=== PATIENT | female | born 1960 | race Caucasian/White ===

== ENCOUNTER 2022-05-14 23:09 | Emergency (ER) | payer BC, SELFPAY ==
[2022-05-14 23:11] VITALS: BP 147/115; PULSE 83; RESP 20; TEMP 36.4; O2SAT 100; BMI 21.9
--- NOTE | 2022-05-14 23:41 | EX.ED.DYSGE1 ---
HPI History of Present Illness Chief Complaint: Anxiety Detail of Chief Complaint: Documented in the HPI narrative Informant: patient, spouse/S.O. and family Onset/Context/Timing Onset: Hours Context: Sudden Onset Timing: Intermittent Quality: HPI narrative Location: 's high school reunion Current Severity: Mild Maximum Severity: Moderate Worsened by: Uncertain Relieved by: Not applicable Associated Symptoms Associated Symptoms: Paresthesia upper and lower extremity, shortness of breath, chest discomfor Narrative Narrative: Patient is a 61-year-old woman with history of prior stroke. She is on an aspirin and hypercholesterolemia drug. She has had extensive work-up with no etiology of her strokes. She does admit to drinking 2.5 beers this evening. She states she does have drinks with her on weekends. She did not drink any more than normal. She denies headache. She states she could not see. states it was dark. It was not a field cut. She denies ringing in ears decreased hearing. She denied perioral numbness. She denies trouble with speech or swallowing. She denied cardiac respiratory symptoms other than the shortness of breath and chest pain after breathing deeply and fast. She denies GI symptoms. She reported difficulty/inability to ambulate; however, her states she was ambulating. Her gait was not broad-based. She is not walking to one side or the other. Prior similar symptoms: No Recent Illness/Hospitalization: No [facility] Medical History Stroke/cerebrovascular accident TIA (transient ischemic attack) Allergy/AdvReac Type Severity Reaction Status Date / Time codeine Allergy Rash Verified 05/14/22 23:21 metronidazole [From Flagyl] Allergy Swelling Verified 05/14/22 23:21 acetaminophen AdvReac Nausea/Vom/ Verified 05/14/22 23:21 [From Darvocet-N] Diarrhea oxycodone [From Percocet] AdvReac Nausea/Vom/ Verified 05/14/22 23:21 Diarrhea propoxyphene AdvReac Nausea/Vom/ Verified 05/14/22 23:21 [From Darvocet-N] Diarrhea Social History (Updated 05/14/22 @ 23:[address] Ethan Conrad MD) household members: spouse Smoking Status: Never smoker alcohol intake: current alcohol intake frequency: a few times a month substance use type: does not use ROS ROS ED Constitutional Constitutional ED: Denies chills, fever(s), subjective, sweats or weight loss Eyes Eyes: Denies blurry vision, change in vision or diplopia ENT ENT ED: Denies ear pain, rhinorrhea or sore throat Cardiovascular Cardiovascular: Reports chest pain and palpitations; Denies orthopnea, paroxysmal nocturnal dyspnea or racing heartbeat Respiratory/Chest Respiratory/Chest: Reports dyspnea; Denies cough, dyspnea on exertion, orthopnea or paroxysmal nocturnal dyspnea Gastrointestinal Gastrointestinal: Denies abdominal pain, constipation, diarrhea, melena, nausea or vomiting Musculoskeletal Musculoskeletal: Denies arthralgias, back pain or myalgias Integumentary Denies rash Neurologic Neurologic: Reports paresthesias; Denies headache(s) or weakness Psychiatric Psychiatric: Reports anxiety; Denies depression Endocrine Endocrinology: Denies cold intolerance or heat intolerance Hematologic/Lymphatic Hematologic/Lymphatic: Reports systems reviewed and no addt'l complaints, except as documented EXAM Physical Exam Const Vital Signs: 05/14/22 23:11 05/14/22 23:47 Temperature 97.6 F L Temperature Source Temporal Pulse Rate 83 88 Respiratory Rate 20 H 17 Blood Pressure 147/115 H Blood Pressure Mean 125 Pulse Ox 100 100 Oxygen Delivery Method Room Air Room Air Positive well nourished and well developed; Negative for obese General Appearance ED: well developed and NAD; Negative for cyanotic, diaphoretic or pallor Nutritional Appearance: Negative for obese HEENT Reports moist mucous membranes HEENT Narrative: Ears normal. Nares patent. No deviation of protrusion. Posterior pharynx out erythema or exudate. Eyes PERRL and EOMs intact bilaterally Eyes Narrative: Patient has nystagmus with lateral gaze. There is no nystagmus with central gaze. There is no APD. General Eye ED: Negative for pale conjunctiva or scleral icterus Neck no lymphadenopathy, supple and no JVD Resp normal respiratory effort and clear to auscultation bilaterally Cardio regular rate, regular rhythm, S1 normal heart sound, S2 normal heart sound and no murmurs GI normal to inspection, nondistended, normoactive bowel sounds, non-tender, non-distended and no masses; Negative for hepatosplenomegaly Back/Spine no CVA tenderness Extremity normal to inspection Extremity Narrative: There is no asymmetry, swelling, discoloration, leg vein distention, palpable cords or tenderness along the distribution of the deep venous system. Neuro oriented x3, No CN's II-XII intact bilaterally and no sensory deficits noted Neuro Narrative: Patient has no dysmetria. There is no clonus Babinski sign. He does have a facial droop on the left due to prior stroke. Patient does have bilateral's Chvostek sign. Sensorium / Orientation: alert Motor Exam: strength 5/5 throughout Psych Psych Narrative: Patient is excitable. Her speech is slightly pressured. As I obtain more information her speech became slower. Skin no rashes or lesions noted, no wounds and skin turgor normal General Skin Exam: Negative for jaundice or pallor MDM MDM MDM Narrative Medical decision making narrative: Patient's history is not consistent with a stroke. Patient did hyperventilate uncertain why. Suspect many of her symptoms were due to hyperventilation. Suspect she may have had more to drink than she admits to. Plan is to reassess in 30 minutes. Patient began to hyperventilate. She was having carpopedal spasms. Plan is to place a Hep-Lock in. Administered 0.5 mg of Ativan and obtain an alcohol level. Patient was reassessed at 0025. She is much Calmer. Her speech is no longer pressured. She is alert she is oriented. Her mentation is slow most likely due to the 0.5 mg of Ativan. She no longer has carpopedal spasms. Cranials 2 through 12 reveal deficit on the left side due to prior stroke. Motor strength is 5/5 upper and lower extremity. Sensation is altered left side of face due to prior stroke otherwise there is no altered sensation. There is no dysmetria. Reflexes are 2+ at the bicep, tricep, brachioradialis, patella and ankle. There is no clonus or Babinski sign noted. There is no inattention. There is no problems with fluency of speech or slurred words. Negative's Chvostek sign. Lab Data Labs: Laboratory Results - last 24 hr 05/15/22 00:03 Ethyl Alcohol 123.0 Rhythm Strip Rhythm Strip: Sinus Rhythm (Rate is 83. When patient was anxious heart rate was 99.) Ectopy: None Discharge Plan Triage Chief Complaint: Anxiety ED Provider: Ethan Conrad Dx/Rx/DC Orders Clinical Impression: Panic attack, History of stroke, Acute hyperventilation syndrome Instructions: ED Hyperventilation Syndrome, ED Panic Attack Primary Care Provider: Rohini Doctor,Out of Referrals: Rohini Doctor,Out of [Primary Care Provider] - 3-5 Days Disposition Disposition: Home, Self Care
[2022-05-14 23:47] VITALS: PULSE 88; RESP 17; O2SAT 100
[2022-05-14] MEDS: LORazepam 2 MG/ML Syringe 0.5 MG IV (23:59)
[2022-05-15 01:02] VITALS: BP 125/77; PULSE 62; RESP 15; O2SAT 98
== END 2022-05-15 01:03 | disposition home or self-care (01) ==
PROVIDERS: Emergency Provider Emergency Medicine; Visit Provider Emergency Medicine
DX: F41.0 Panic disorder [episodic paroxysmal anxiety] (principal); Z86.73 Personal history of transient ischemic attack (TIA), and cerebral infarction without residual deficits; F45.8 Other somatoform disorders; Z79.899 Other long term (current) drug therapy; Z79.82 Long term (current) use of aspirin
CPT/HCPCS: 82077; 96374; 99283; A4216